=== PATIENT | female | born 1975 | race African-American/Black ===

== ENCOUNTER 2020-09-17 20:27 | Emergency (ER) | payer OTHER, SELFPAY ==
--- NOTE | ~2020-09-17 | XR_ITS ---
EXAMINATION: XR CHEST CLINICAL INFORMATION: Chest pain COMPARISON: None TECHNIQUE: Frontal view of the chest was obtained. FINDINGS: No significant abnormality is noted involving the heart, lungs, mediastinum, bony thorax or soft tissues. XR/XR chest 1V IMPRESSION: Unremarkable examination.
[2020-09-17 20:45] VITALS: BMI 29.9
[2020-09-17 21:15] LABS: COVID-19 Test Negative (Negative); IDNOW Serial# 9DD0AD1C
[2020-09-17 21:26] VITALS: BP 136/81; PULSE 70; RESP 20; TEMP 36.6; O2SAT 100; BMI 29.9
--- NOTE | 2020-09-17 21:46 | ECG_ITS ---
Test Reason : chest pain Blood Pressure : / mmHG Vent. Rate : 069 BPM Atrial Rate : 069 BPM P-R Int : 164 ms QRS Dur : 080 ms QT Int : 430 ms P-R-T Axes : 032 005 035 degrees QTc Int : 460 ms Normal sinus rhythm Possible Left atrial enlargement Left ventricular hypertrophy Abnormal ECG No previous ECGs available Referred By: Leon Lowery Electronically Signed By:DENISE KAY
--- NOTE | 2020-09-17 22:02 | ED_ITS ---
HPI - General Adult General Chief complaint: Upper Respiratory Symptoms Stated complaint: COVID EXPOSURE Time Seen by Provider: 09/17/20 21:28 Source: patient Mode of arrival: ambulatory Limitations: no limitations History of Present Illness HPI narrative: Patient presents to ED for exposure to COVID. Patient was e xposed to COVID 5 days ago. Patient states since then she has been anxious and having slight chest discomfort ( 5 days), but not chest pain. Patient has history of anxiety. Patient states no fever, or coughing. Patient denies any swelling of lower extremity, calf pain, coughing up blood, recent surgery, recent long travel, or any history of blood clots. Patient denies any control use Related Data Allergies Allergy/AdvReac Type Severity Reaction Status Date / Time No Known Allergies Allergy Verified 09/17/20 21:46 Review of Systems Review of Systems: Yes all other systems are reviewed and are negative Constitutional: Constitutional: Reports as per HPI and Reports no additional constitutional complaints Eyes: Eyes: Reports as per HPI and Reports no additional eye complaints ENT: Reports system reviewed and no additional complaints, except as documented and Reports as per HPI Cardiovascular: Cardiovascular: Reports as per HPI, Reports no additional cardiovascular complaints and Reports chest pain (No pain, chest discomfort, anxious) Respiratory: Respiratory: Reports as per HPI and Reports no additional respiratory complaints Gastrointestinal: Gastrointestinal: Reports as per HPI and Reports no ad ditional gastrointestinal complaints Musculoskeletal: Musculoskeletal: Reports no additional musculoskeletal complaints and Reports as per HPI Neurologic: Reports system reviewed and no additional complaints, except as documented and Reports as per HPI [facility] Past Medical History Medical History (Updated 09/17/20 @ 23:12 by ZBIGNIEW Carter) Panic attack Social History Social History Advance Directives: No Advance Directives Information Provided: No Patient : No Physical Exam Vital Signs: Vital Signs: Last Vital Signs Temp 97.6 F 09/17/20 22:58 Pulse 69 09/17/20 22:58 Resp 16 09/17/20 22:58 BP 142/92 H 09/17/20 22:58 Pulse Ox 98 09/17/20 22:58 Body Mass Index 29.9 Const: General: cooperative, healthy appearing, comfortable, no acute distress, well developed, alert, awake and Physically active Orientation/consciousness: patient oriented x3 HENMT: Head: Yes normal to inspection, Yes No palpable skull fracture present, Yes normocephalic, Yes atraumatic and No abrasion Eyes: General: appearance normal, both eyes and all related structures Neck: Neck: Yes normal visual inspection, Yes full ROM, Yes no lymphadenopathy, Yes no meningeal signs, Yes trachea midline, Yes supple and No tender Chest: Chest palpation & inspection: normal inspection of the chest and normal palpation of entire chest wall Resp: Effort & Inspection: normal respiratory effort and able to speak in complete sentences Auscultation: clear to auscultation bilaterally Cardio: Jugular venous distension: no JVD Heart sounds: S1 normal heart sound present and S2 normal heart sound present GI: Inspection: Yes normal to inspection Palpation (GI): Soft to palpation, not firm, nontender, no guarding and not rigid : General: No CVA tenderness and Yes no CVA tenderness Back/Spine/Pelvis: Back: no CVA tenderness, No CVA tenderness and No back tenderness Skin: General skin exam: no rashes or lesions noted and elasticity normal Neuro: General: patient oriented x3, gait normal, no meningeal signs and CN's II-XI intact bilaterally Cranial nerves: Yes CN's II-XII intact bilaterally Extrem: Other: Lower extremities negative for swelling, pitting edema, calf pain General: Yes normal to inspection and Yes full ROM Psych: Appearance: grossly normal, well kempt and not disheveled Course Course Course Narrative: Most likely patient have anxiety. COVID swab negative. Due to age will do a lease EKG and cardiac workup and chest x-ray. Patient states she is feeling better. Patient agreeable to medical evaluation. Patient was offered anxiety meds but she says she bought something yesterday and was taking when she got home. Patient states has no one in her family has heart attack at less than 50. . Reevaluation(s) Reevaluation #1: Patient presently asymptomatic. Patient's troponin negative. Patient's troponin negative. CBC is at baseline as per patient. Patient states she is anemic. Chest x-ray negative for pneumonia. D-dimer is 235. Upper limit normal is 278. D-dimer negative. PERC score 0. EKG negative STEMI. Patient do es not want any anxiety meds. Patient states she bought anxiety meds yesterday. I discussed patient's hemoglobin and hematocrit with her and she states those are her baseline and she has history of anemia. Time: 23:09 Medical Decision Making MDM Narrative Medical decision making narrative: COVID exposure Lab Data Result diagrams: 09/17/20 22:15 09/17/20 22:15 Labs: Lab Results 09/17/20 09/17/20 09/17/20 Range/Units 20:52 22:15 22:15 WBC 6.1 (4.8-10.8) X10*3/uL RBC 3.28 L (4.20-5.50) X10*6/uL Hgb 8.3 L (12.0-16.0) g/dl Hct 27.0 L (37-47) % MCV 82.3 (80-98) fL MCH 25.3 L (27.0-33.0) pg MCHC 30.7 L (31.0-35.0) g/dl RDW 17.3 H (11.0-16.0) % Plt Count 527 H (160-400) X10*3/uL MPV 8.3 L (9.4-12.3) fL Immature Gran % (Auto) 0.2 (0.0-0.4) % Neut % (Auto) 48.6 (45-73) % Lymph % (Auto) 40.1 H (20-40) % Saunders % (Auto) 7.0 (2-11) % Eos % (Auto) 3.1 (0-4) % Baso % (Auto) 1.0 (0-2) % Lymph # (Auto) 2.5 (1.2-4.9) X10*3/uL Saunders # (Auto) 0.4 (0.1-1.2) X10*3/uL Eos # (Auto) 0.2 (0.0-0.4) X10*3/uL Baso # (Auto) 0.1 (0.0-0.2) X10*3/uL Abs Immat Gran (auto) 0.01 (0.00-0.03) X10*3/uL Absolute Neuts (auto) 3.0 (2.0-8.3) X10*3/uL Absolute Nucleated RBC 0.000 (0.0-0.012) X10*3/uL Nucleated RBC % (auto) 0.0 (0.0-0.2) /100WBC PT 11.9 (10.8-13.0) SEC INR 1.0 (0.9-1.1) APTT 37.8 (24.1-38.0) SEC D-Dimer 235 NG/ML Sodium (135-145) mmol/L Potassium (3.3-5.1) mmol/L Chloride (96-108) mmol/L Carbon Dioxide (22-29) mmol/L Anion Gap (12-20) BUN (9-16) mg/dL Creatinine (0.5-1.4) mg/dL Estim Creat Clear Calc Estimated GFR Random Glucose (60-115) mg/dL Calcium (8.4-10.2) mg/dL Total Bilirubin (0.0-1.0) mg/dL AST (5-31) U/L ALT (0-31) U/L Alkaline Phosphatase (39-117) U/L Troponin I High Sens (<3.5-17.0) ng/L B-Natriuretic Peptide (<100) pg/mL Total Protein (6.5-8.0) g/dL Albumin (3.5-5.0) g/dL COVID-19 (MICHAEL) Negative (Negative) COVID-19 Clin Com See Note 09/17/20 09/17/20 09/17/20 Range/Units 22:15 22:15 22:15 WBC (4.8-10.8) X10*3/uL RBC (4.20-5.50) X10*6/uL Hgb (12.0-16.0) g/dl Hct (37-47) % MCV (80-98) fL MCH (27.0-33.0) pg MCHC (31.0-35.0) g/dl RDW (11.0-16.0) % Plt Count (160-400) X10*3/uL MPV (9.4-12.3) fL Immature Gran % (Auto) (0.0-0.4) % Neut % (Auto) (45-73) % Lymph % (Auto) (20-40) % Saunders % (Auto) (2-11) % Eos % (Auto) (0-4) % Baso % (Auto) (0-2) % Lymph # (Auto) (1.2-4.9) X10*3/uL Saunders # (Auto) (0.1-1.2) X10*3/uL Eos # (Auto) (0.0-0.4) X10*3/uL Baso # (Auto) (0.0-0.2) X10*3/uL Abs Immat Gran (auto) (0.00-0.03) X10*3/uL Absolute Neuts (auto) (2.0-8.3) X10*3/uL Absolute Nucleated RBC (0.0-0.012) X10*3/uL Nucleated RBC % (auto) (0.0-0.2) /100WBC PT (10.8-13.0) SEC INR (0.9-1.1) APTT (24.1-38.0) SEC D-Dimer NG/ML Sodium 141 (135-145) mmol/L Potassium 3.6 (3.3-5.1) mmol/L Chloride 107 (96-108) mmol/L Carbon Dioxide 25 (22-29) mmol/L Anion Gap 13 (12-20) BUN 9 (9-16) mg/dL Creatinine 0.80 (0.5-1.4) mg/dL Estim Creat Clear Calc 91.7 Estimated GFR > 60 Random Glucose 87 (60-115) mg/dL Calcium 8.7 (8.4-10.2) mg/dL Total Bilirubin 0.3 (0.0-1.0) mg/dL AST 17 (5-31) U/L ALT 7 (0-31) U/L Alkaline Phosphatase 69 (39-117) U/L Troponin I High Sens < 3.5 (<3.5-17.0) ng/L B-Natriuretic Peptide 27 (<100) pg/mL Total Protein 7.4 (6.5-8.0) g/dL Albumin 4.2 (3.5-5.0) g/dL COVID-19 (MICHAEL) (Negative) COVID-19 Clin Com ECG Data Interpretation: Normal sinus rhythm. Ventricular rate 69. Pr interval 164. QRS 80. Negative STEMI Discharge Plan Discharge Clinical Impression: Close exposure to 2019-nCoV Patient Disposition: Home, Self-Care Instructions: Chest Pain (ED), Anxiety (ED) Additional Instructions: EKG came back negative for heart attack. Troponin came back negative. Youre D- dimer was negative. Chest x-ray was normal. Negative COVID swab. Your BNP came back negative. Return to ED for worsening chest pain, shortness of breath, swelling of lower extremities, calf pain, coughing up blood, fever, chills, or any other concerning symptoms. Please follow-up with your PCP Interventions: ED Discharge Assessment Last Done: 09/17/20 23:19 Discharge Date/Time: 09/17/20 23:23 Print Language: Burkinan
[2020-09-17 22:24] LABS: MANUAL DIFF FLAG NO
[2020-09-17 22:25] LABS: Basophils Absolute Auto 0.1 X10*3/uL (0.0-0.2); Eosinophils Absolute Auto 0.2 X10*3/uL (0.0-0.4); Eosinophils Percent Auto 3.1 % (0-4); Hemoglobin 8.3 g/dl (12.0-16.0); Imm Gran Abs Auto 0.01 X10*3/uL (0.00-0.03); Imm Gran Pct Auto 0.2 % (0.0-0.4); Lymphocytes Absolute Auto 2.5 X10*3/uL (1.2-4.9); Lymphocytes Percent Auto 40.1 % (20-40); Mean Corpuscular HGB Conc 30.7 g/dl (31.0-35.0); Mean Corpuscular Hemoglobin 25.3 pg (27.0-33.0); Mean Corpuscular Volume 82.3 fL (80-98); Mean Platelet Volume 8.3 fL (9.4-12.3); Monocytes Absolute Auto 0.4 X10*3/uL (0.1-1.2); Neutrophils Percent Auto 48.6 % (45-73); Platelet Count 527 X10*3/uL (160-400); Red Blood Count 3.28 X10*6/uL (4.20-5.50); Red Cell Distribution Width 17.3 % (11.0-16.0); White Blood Count 6.1 X10*3/uL (4.8-10.8)
[2020-09-17 22:37] LABS: Prothrombin Time 11.9 SEC (10.8-13.0)
[2020-09-17 22:40] LABS: Partial Thromboplastin Time 37.8 SEC (24.1-38.0)
[2020-09-17 22:41] LABS: D Dimer 235 NG/ML
[2020-09-17 22:48] LABS: Alanine Aminotransferase 7 U/L (0-31); Albumin Level 4.2 g/dL (3.5-5.0); Alkaline Phosphatase 69 U/L (39-117); Anion Gap 13 (12-20); Aspartate Amino Transferase 17 U/L (5-31); Bilirubin Total 0.3 mg/dL (0.0-1.0); Blood Urea Nitrogen 9 mg/dL (9-16); Calcium 8.7 mg/dL (8.4-10.2); Carbon Dioxide 25 mmol/L (22-29); Chloride 107 mmol/L (96-108); Creatinine Clr Calc Pharmacy 91.7; Estimated Glomerular Filt Rate > 60; Glucose Random 87 mg/dL (60-115); Potassium 3.6 mmol/L (3.3-5.1); Sodium 141 mmol/L (135-145); Total Protein 7.4 g/dL (6.5-8.0)
[2020-09-17 22:54] LABS: B Type Natriuretic Peptide 27 pg/mL (<100); Troponin-I High Sensitivity < 3.5 ng/L (<3.5-17.0)
[2020-09-17 22:58] VITALS: BP 142/92; PULSE 69; RESP 16; TEMP 36.4; O2SAT 98
== END 2020-09-17 23:23 | disposition home or self-care (01) ==
PROVIDERS: Physician Assistant; Emergency Provider Internal Medicine
DX: R07.89 Other chest pain (principal); F41.9 Anxiety disorder, unspecified; Z20.822 Contact with and (suspected) exposure to COVID-19
CPT/HCPCS: 36415; 71045; 80053; 83880; 84484; 85025; 85379; 85610; 85730; 87635; 93005; 99283; 99284

== ENCOUNTER 2020-10-06 15:31 | Emergency (ER) | payer OTHER, SELFPAY ==
[2020-10-06 15:38] VITALS: BP 131/82; PULSE 69; RESP 14; TEMP 37; O2SAT 100; BMI 29.9
--- NOTE | 2020-10-06 16:36 | ED.GENADULT ---
HPI - General Adult General Chief complaint: Skin/Abscess/Foreign Body Stated complaint: FB IN EAR Time Seen by Provider: 10/06/20 16:35 History of Present Illness HPI narrative: patient complains of broken off piece of cotton Q-tip in right ear, no ear pain Review of systems positive for foreign body in right ear Negatives are no fever no chills no headache no dizziness no sore throat no neck pain no rash Related Data Allergies Allergy/AdvReac Type Severity Reaction Status Date / Time No Known Allergies Allergy Verified 09/17/20 21:46 [facility] Past Medical History Source: nursing notes reviewed Medical History (Updated 10/07/20 @ 00:01 by Liu Little) Panic attack Social History Social History Advance Directives: No Advance Directives Information Provided: Yes Patient : No Physical Exam Vital Signs: Vital Signs: Last Vital Signs Temp 98.6 F 10/06/20 15:38 Pulse 69 10/06/20 15:38 Resp 14 10/06/20 15:38 BP 131/82 10/06/20 15:38 Pulse Ox 100 10/06/20 15:38 Body Mass Index 29.9 Head is normocephalic atraumatic The left ear has normal tympanic membrane with normal canal, tympanic membrane is easily visualized and is not read The right ear is blocked by a piece of cotton Q-tip and the tympanic membrane is not visualized The pharynx is clear Neck is supple Respiratory no distress Heart no murmur Skin no rashes Course Course Course Narrative: The piece of Q-tip in the right ears easily removed with a forceps [place] exam of the right ear shows a normal canal, tympanic membrane is easily visualized with out any perforation no signs of infection and patient is discharged Discharge Plan Discharge Clinical Impression: Foreign body in ear Patient Disposition: Home, Self-Care Additional Instructions: piece of cotton Q-tip was removed with forceps, no residual foreign body Try to avoid putting Q-tips deeply anterior here, if you need to remove wax you can buy a wax softener and use syringe with warm water to irrigate out any wax Return any concerns Interventions: ED Discharge Assessment Last Done: 10/06/20 16:39 Discharge Date/Time: 10/06/20 16:40
== END 2020-10-06 16:40 | disposition home or self-care (01) ==
PROVIDERS: Emergency Provider Internal Medicine
DX: T16.1XXA Foreign body in right ear, initial encounter (principal); X58.XXXA Exposure to other specified factors, initial encounter; Y93.9 Activity, unspecified; Y92.9 Unspecified place or not applicable; Y99.9 Unspecified external cause status
CPT/HCPCS: 69200; 99283; 99284

== ENCOUNTER 2021-03-22 13:54 | Emergency (ER) | payer OTHER, SELFPAY ==
--- NOTE | ~2021-03-22 | XR_ITS ---
EXAMINATION: XR CHEST CLINICAL INFORMATION: Cough COMPARISON: September 17, 2020 TECHNIQUE: AP portable view of the chest was obtained. FINDINGS: No significant abnormality is noted involving the heart, lungs, mediastinum, bony thorax or soft tissues. Density overlying both lower lungs appear to be related to breast shadows. XR/XR chest 1V IMPRESSION: No acute disease.
[2021-03-22 14:16] VITALS: BP 120/74; PULSE 63; RESP 18; TEMP 36.9; O2SAT 99; BMI 28.3
--- NOTE | 2021-03-22 14:39 | ED_ITS ---
HPI - SOB/Dyspnea General Chief Complaint: Dyspnea Stated Complaint: SOB Time Seen by Provider: 03/22/21 14:38 Source: patient Mode of arrival: ambulatory Limitations: no limitations History of Present Illness MD elicited complaint: shortness of breath and cough Onset (ago): day(s) (5) Context: other (not vaccinated) Timing: constant Severity: moderate Exacerbating factors: coughing Relieving factors: nothing Associated symptoms: fever, cough and sputum production Treatment prior to arrival: none Related Data Previous Rx's Medication Instructions Recorded azithromycin 250 mg tablet See Rx Instructions .ROUTE 03/22/21 .COMPLEX #6 tab benzonatate 100 mg capsule 100 mg PO TID PRN #30 cap 03/22/21 prednisone 20 mg tablet 40 mg PO DAILY 5 Days #10 tab 03/22/21 Allergies Allergy/AdvReac Type Severity Reaction Status Date / Time No Known Allergies Allergy Verified 03/22/21 14:16 Review of Systems Review of Systems: Constitutional : pos Fever, No Chills ENT/Mouth : No sore throat, No Rhinorrhea, No Swallowing Difficulty Eyes: No Eye Pain, No Swelling, No Redness Cardiovascular : No Chest Pain, positive SOB, No Orthopnea, no Edema Respiratory : pos Cough, pos Sputum, No Wheezing, positive dyspnea Gastrointestinal : No Nausea, No Vomiting, No Diarrhea, No abdominal Pain, No Hematochezia, No Melena Genitourinary : No Dysuria, No Urinary Frequency, No Hematuria Musculoskeletal : No joint pain, No Myalgias Skin : No Skin Lesions, No rash Neuro : No Weakness, No Numbness, No Dizziness, No Headache Psych : No Anxiety/Panic, No Depression Heme/Lymph: No Bruising, No Lymphadenopathy Endocrine : No Polyuria, No Polydipsia All other systems reviewed and are negative [facility] Past Medical History Medical History Panic attack Social History Social History (Updated 03/22/21 @ 15:15 by Amanda Diamond DO) Patient Tobacco Use Status: Never used Tobacco Use of substances other than those prescribed or required for medical reasons: No Advance Directives: No Advance Directives Information Provided: Yes Patient : No Physical Exam Vital Signs: Vital Signs: Last Vital Signs Temp 98.4 F 03/22/21 14:16 Pulse 63 03/22/21 15:33 Resp 16 03/22/21 15:33 BP 120/74 03/22/21 14:16 Pulse Ox 99 03/22/21 14:16 BMI result Body Mass Index 28.3 Appearance: Alert. Oriented X3. No acute distress. Eyes: Pupils equal, round and reactive to light. ENT: Pharynx normal. Neck: Normal inspection. Neck supple. CVS: Normal heart rate and rhythm. Pulses normal. Respiratory: No respiratory distress. Breath sounds slightly diminished faint rhonchi noted. Abdomen: Soft and nontender. Skin: Skin warm and dry. Normal skin color. Normal skin turgor. Extremities: No lower extremity edema. No calf ttp Neuro: Oriented X 3. No motor deficit. No sensory deficit. MDM - SOB/Dyspnea MDM Narrative Medical decision making narrative: 46 yo female with no sig PMH unvaccinated for COVID here with c/o 5 days productive cough in nature had fever 2 days ago denies sick contacts tolerating PO - at this time CXR for pneumonia ordered, INH, tessalon. Not toxic, normal O2 sats, no chest pain. Dispo per results and findings. Lab Data Labs: Lab Results 03/22/21 Range/Units 14:28 COVID-19 (MICHAEL) Negative (Negative) COVID-19 Clin Com See Note Discharge Plan Discharge Clinical Impression: Bronchitis Patient Disposition: Home, Self-Care Instructions: Acute Bronchitis (ED) Additional Instructions: return to ED for any worsening symptoms or concerns your chest xray shows no pneumonia your COVID test was negative CAN USE INHALER 2 PUFFS EVERY 3 TO 4 HOURS FOR SHORTNESS OF BREATH OR COUGH Prescriptions: New azithromycin 250 mg tablet See Rx Instructions .ROUTE .COMPLEX Qty: 6 RF: 0 benzonatate 100 mg capsule 100 mg PO TID PRN (Reason: cough) Qty: 30 RF: 0 prednisone 20 mg tablet 40 mg PO DAILY 5 Days Qty: 10 RF: 0 Referrals: Physician,Unknown J [Primary Care Provider] - 3 days (if not better) Stand Alone Forms: Work/School Release
[2021-03-22 14:52] LABS: COVID-19 Test Negative (Negative); IDNOW Serial# 9DD0AD1C
[2021-03-22] MEDS: Albuterol Sulfate 90 MCG 8 GM INHALER 2 PUFF INHALE (15:28)
[2021-03-22 15:33] VITALS: PULSE 63; RESP 16; O2SAT 99
[2021-03-22] MEDS: Benzonatate 100 MG CAPSULE PO (15:48)
== END 2021-03-22 15:54 | disposition home or self-care (01) ==
PROVIDERS: Emergency Provider Emergency Medicine
DX: J40 Bronchitis, not specified as acute or chronic (principal); R06.02 Shortness of breath; Z79.899 Other long term (current) drug therapy; Z20.822 Contact with and (suspected) exposure to COVID-19
CPT/HCPCS: 36415; 71045; 87635; 94640; 99282; 99284

== ENCOUNTER 2021-10-15 12:39 | Emergency (ER) | payer OTHER, SELFPAY ==
[2021-10-15 13:01] VITALS: BP 140/86; PULSE 72; RESP 18; TEMP 36.6; O2SAT 100; BMI 28.4
[2021-10-15 14:18] LABS: MANUAL DIFF FLAG NO
[2021-10-15 14:21] LABS: Basophils Absolute Auto 0.1 X10*3/uL (0.0-0.2); Basophils Percent Auto 1.1 % (0-2); Eosinophils Absolute Auto 0.3 X10*3/uL (0.0-0.4); Eosinophils Percent Auto 5.2 % (0-4); Hematocrit 26.4 % (37.0-47.0); Hemoglobin 7.6 g/dl (12.0-16.0); Imm Gran Abs Auto 0.02 X10*3/uL (0.00-0.03); Imm Gran Pct Auto 0.4 % (0.0-0.4); Lymphocytes Absolute Auto 1.8 X10*3/uL (1.2-4.9); Lymphocytes Percent Auto 32.5 % (20-40); Mean Corpuscular HGB Conc 28.8 g/dl (31.0-35.0); Mean Corpuscular Hemoglobin 22.2 pg (27.0-33.0); Mean Corpuscular Volume 77.2 fL (80.0-98.0); Mean Platelet Volume 8.2 fL (9.4-12.3); Monocytes Absolute Auto 0.4 X10*3/uL (0.1-1.2); Monocytes Percent Auto 6.5 % (2-11); Neutrophils Absolute Auto 2.9 x10*3/uL (2.0-8.3); Neutrophils Percent Auto 54.3 % (45-73); Platelet Count 597 X10*3/uL (160-400); Red Blood Count 3.42 X10*6/uL (4.20-5.50); Red Cell Distribution Width 19.4 % (11.0-16.0); White Blood Count 5.4 X10*3/uL (4.8-10.8)
[2021-10-15 15:03] LABS: Alanine Aminotransferase 7 U/L (0-31); Alkaline Phosphatase 64 U/L (39-117); Anion Gap 8 (12-20); Aspartate Amino Transferase 16 U/L (5-31); Bilirubin Direct < 0.2 mg/dL (0.0-0.5); Bilirubin Total 0.2 mg/dL (0.0-1.0); Blood Urea Nitrogen 6 mg/dL (9-16); Calcium 8.9 mg/dL (8.4-10.2); Carbon Dioxide 26 mmol/L (22-29); Chloride 109 mmol/L (96-108); Creatinine Clr Calc Pharmacy 94.4; Estimated Glomerular Filt Rate > 60; Glucose Random 91 mg/dL (60-115); Potassium 4.1 mmol/L (3.3-5.1); Sodium 139 mmol/L (135-145); Total Protein 7.2 g/dL (6.5-8.0)
[2021-10-15 19:52] VITALS: BP 175/91; PULSE 58; RESP 18; O2SAT 98
--- NOTE | 2021-10-15 19:54 | PC.NURSE ---
STEADY ON FEET. skin pwd, lower conjunctiva slightly pale. denies hx of anemia. states dizziness is improved compaired to a few hrs ago.
--- NOTE | 2021-10-15 21:01 | ED.GENADULT ---
HPI - General Adult General Chief complaint: General Medical Stated complaint: Low Blood Count C Called Pt Time Seen by Provider: 10/15/21 17:47 Source: patient Mode of arrival: ambulatory Limitations: no limitations History of Present Illness HPI narrative: Patient's history of chronic iron deficiency anemia for last 20 years noncompliant to her ferrous sulfate tablets because of constipation sent from urgent care center for hemoglobin of 7.6 patient does have vertigo denies any lightheadedness no syncope no shortness of breath no chest pain or palpitation ,no history of blood transfusion no melena no vaginal bleeding no history of peptic ulcer bleed Related Data Previous Rx's Medication Instructions Recorded azithromycin 250 mg tablet See Rx Instructions PO .COMPLEX #6 03/22/21 tabs benzonatate 100 mg capsule 100 mg PO TID PRN cough #30 caps 03/22/21 prednisone 20 mg tablet 40 mg PO DAILY 5 days #10 tabs 03/22/21 ferrous sulfate 300 mg (60 mg 300 mg (5 mL) PO DAILY #500 mL 10/15/21 iron)/5 mL oral liquid Allergies Allergy/AdvReac Type Severity Reaction Status Date / Time No Known Allergies Allergy Verified 03/22/21 14:16 Review of Systems Review of Systems: Yes all other systems are reviewed and are negative [facility] Past Medical History Medical History Panic attack Social History Social History Patient Tobacco Use Status: Never used Tobacco Advance Directives: No Advance Directives Information Provided: No Physical Exam ED Vital Signs: Vital Signs - 24 hr 10/15/21 13:01 10/15/21 19:52 10/15/21 21:13 Temperature 98 F Pulse Rate 72 58 Respiratory Rate 18 18 Blood Pressure 140/86 H 175/91 H 149/82 H Pulse Oximetry 100 98 Oxygen Delivery Method Room Air Room Air 10/15/21 21:14 10/15/21 21:14 Temperature Pulse Rate 63 Respiratory Rate Blood Pressure 149/82 H 154/85 H Pulse Oximetry Oxygen Delivery Method BMI result Body Mass Index 28.4 Appearance: Alert. Oriented X3. No acute distress. Eyes: Pallor+ ENT: Pharynx normal. Oral Mucosa moist tympanic membrane intact Neck: Normal inspection. Neck supple. CVS: Normal heart rate and rhythm. Pulses normal. Respiratory: No respiratory distress. Equal air entry bilateral, no wheezing/rales/rhonchi Abdomen: Soft and nontender. Bowel sounds are present, no mass palpable, no CVA tenderness Skin: Skin warm and dry. Normal skin color. Normal skin turgor. Extremities: No lower extremity edema. No calf tenderness Neuro: Oriented X 3. No motor deficit. No sensory deficit.No cerebellar signs , cranial nerves II-XII intact Medical Decision Making MDM Narrative Medical decision making narrative: Patient with chronic iron-deficiency anemia with hemoglobin 7.6 hematocrit 26.4 in 09/24 patient hemoglobin was 8.3 hematocrit 27 patient is symptomatic from chronic anemia noncompliant to iron tablets orthostatics are normal will discharge patient home on iron liquid Lab Data Lab results reviewed: Yes I reviewed the patient's lab results. Result diagrams: 10/15/21 14:14 10/15/21 14:14 Labs: Lab Results 10/15/21 10/15/21 10/15/21 Range/Units 14:14 14:14 20:53 WBC 5.4 (4.8-10.8) X10*3/uL RBC 3.42 L (4.20-5.50) X10*6/uL Hgb 7.6 L (12.0-16.0) g/dl Hct 26.4 L (37.0-47.0) % MCV 77.2 L (80.0-98.0) fL MCH 22.2 L (27.0-33.0) pg MCHC 28.8 L (31.0-35.0) g/dl RDW 19.4 H (11.0-16.0) % Plt Count 597 H (160-400) X10*3/uL MPV 8.2 L (9.4-12.3) fL Immature Gran % (Auto) 0.4 (0.0-0.4) % Neut % (Auto) 54.3 (45-73) % Lymph % (Auto) 32.5 (20-40) % [place] % (Auto) 6.5 (2-11) % Eos % (Auto) 5.2 H (0-4) % Baso % (Auto) 1.1 (0-2) % Lymph # (Auto) 1.8 (1.2-4.9) X10*3/uL [place] # (Auto) 0.4 (0.1-1.2) X10*3/uL Eos # (Auto) 0.3 (0.0-0.4) X10*3/uL Baso # (Auto) 0.1 (0.0-0.2) X10*3/uL Abs Immat Gran (auto) 0.02 (0.00-0.03) X10*3/uL Absolute Neuts (auto) 2.9 (2.0-8.3) x10*3/uL Absolute Nucleated RBC 0.000 (0.0-0.012) X10*3/uL Nucleated RBC % (auto) 0.0 (0.0-0.2) /100WBC Sodium 139 (135-145) mmol/L Potassium 4.1 (3.3-5.1) mmol/L Chloride 109 H (96-108) mmol/L Carbon Dioxide 26 (22-29) mmol/L Anion Gap 8 L (12-20) BUN 6 L (9-16) mg/dL Creatinine 0.75 (0.5-1.4) mg/dL Estim Creat Clear Calc 94.4 Estimated GFR > 60 Random Glucose 91 (60-115) mg/dL Calcium 8.9 (8.4-10.2) mg/dL Total Bilirubin 0.2 (0.0-1.0) mg/dL Direct Bilirubin < 0.2 (0.0-0.5) mg/dL AST 16 (5-31) U/L ALT 7 (0-31) U/L Alkaline Phosphatase 64 (39-117) U/L Total Protein 7.2 (6.5-8.0) g/dL Albumin 4.0 (3.5-5.0) g/dL Blood Type B Positive Discharge Plan Discharge Clinical Impression: Iron deficiency anemia, Benign paroxysmal positional vertigo Patient Disposition: Home, Self-Care Instructions: Iron Deficiency Anemia (ED), Benign Paroxysmal Positional Vertigo (ED) Additional Instructions: Take iron tablets/liquid daily as prescribed. Continue meclizine for dizziness. Follow-up with ENT Prescriptions: New ferrous sulfate 300 mg (60 mg iron)/5 mL liquid 300 mg PO DAILY Qty: 500 0RF No Action azithromycin 250 mg tablet See Rx Instructions .ROUTE .COMPLEX Qty: 6 0RF Rx Instructions: For 250 mg dose pack: take 500 mg today (day 1), then 250 mg for 4 days (days 2-5) benzonatate 100 mg capsule 100 mg PO TID PRN (Reason: cough) Qty: 30 0RF prednisone 20 mg tablet 40 mg PO DAILY 5 Days Qty: 10 0RF Referrals: Abdoul Pettit [Physician] - 1 week
[2021-10-15 21:13] VITALS: BP 149/82
[2021-10-15 21:14] VITALS: BP 149/82; BP 154/85; PULSE 63
[2021-10-15 21:38] LABS: Iron 271 mcg/dL (30-160); Percent Iron Saturation 76 % (15-50); Total Iron Binding Capacity 358 mcg/dL (228-428); Unsaturated Iron Binding 87 ug/dL
== END 2021-10-15 21:42 | disposition home or self-care (01) ==
PROVIDERS: Emergency Provider Internal Medicine
DX: D50.9 Iron deficiency anemia, unspecified (principal); H81.13 Benign paroxysmal vertigo, bilateral; Z79.899 Other long term (current) drug therapy
CPT/HCPCS: 36415; 80048; 80076; 83540; 85025; 86850; 86900; 86901; 99283; 99284

== ENCOUNTER 2022-04-15 09:29 | Emergency (ER) | payer OTHER, SELFPAY ==
[2022-04-15 09:31] VITALS: BP 163/88; PULSE 73; RESP 19; TEMP 36.6; O2SAT 100; BMI 27.6
--- NOTE | 2022-04-15 09:45 | ED.GENADULT ---
HPI - General Adult General Chief complaint: General Medical Stated complaint: Bumps on forehead Time Seen by Provider: 04/15/22 09:37 Source: patient Mode of arrival: ambulatory Limitations: no limitations History of Present Illness HPI narrative: Patient is a 47-year-old female who presents to the emergency department with complaint of pruritic rash to forehead, arms, and abdomen Patient reports symptom onset to be 3 days ago after spending 4 nights in a hotel. On the last night she noticed that there were bugs present in the room, she is not certain what type of bug this was. Denies any systemic symptoms. Denies any new medications, creams, lotions, soaps, detergents. Related Data Previous Rx's Medication Instructions Recorded azithromycin 250 mg tablet See Rx Instructions PO .COMPLEX #6 03/22/21 tabs benzonatate 100 mg capsule 100 mg PO TID PRN cough #30 caps 03/22/21 prednisone 20 mg tablet 40 mg PO DAILY 5 days #10 tabs 03/22/21 ferrous sulfate 300 mg (60 mg 300 mg (5 mL) PO DAILY #500 mL 10/15/21 iron)/5 mL oral liquid loratadine 10 mg tablet (Claritin) 10 mg PO DAILY #14 tabs 04/15/22 triamcinolone acetonide 0.1 % 1 appl topical BID #30 grams 04/15/22 topical cream Allergies Allergy/AdvReac Type Severity Reaction Status Date / Time No Known Allergies Allergy Verified 03/22/21 14:16 Review of Systems Review of Systems: Skin: Rashes noted in HPI Yes all other systems are reviewed and are negative PMFSH Past Medical History Attestation statement: The following information was validated with the patient. Medical History Panic attack Social History Social History Patient Tobacco Use Status: Never used Tobacco Advance Directives: No Advance Directives Information Provided: No Physical Exam ED Vital Signs: Vital Signs - 24 hr 04/15/22 09:31 Temperature 98 F Pulse Rate 73 Respiratory Rate 19 Blood Pressure 163/88 H Pulse Oximetry 100 Oxygen Delivery Method Room Air BMI result Body Mass Index 27.6 Appearance: Alert.?Oriented to person, place and time. No acute distress.?Normal affect.? Neck: Normal inspection.? Neck supple.?? CVS: Heart sounds normal. Normal heart rate and rhythm.? Pulses normal.?? Respiratory: No respiratory distress.? Lung sounds clear to auscultation bilaterally?? Abdomen: Soft and non-tender. ? Skin: Skin warm and dry.? Normal skin color.? Maculopapular rash to forehead, bilateral arms, and abdomen in a linear distribution without surrounding erythema, purulence, or vesicles.? Extremities: No lower extremity edema.? Neuro: Moves all extremities spontaneously. Sensation intact bilaterally. No focal neuro deficits. Ambulates with normal steady gait. Medical Decision Making Medical Decision Making MDM Narrative: Patient is a 47-year-old female with no reported past medical history presenting to the emergency department for evaluation of a rash. History and physical examination appear most consistent with bedbug bites, does not appear consistent with scabies, no notable burrows, no crusting, no vesicles, not present to intertriginous areas. Discussed potential for contact dermatitis as well [place] at this time no identifiable contact allergens, bedbug bites sees more likely onset after residing in hotel were bugs were noted to be present. She is overall well-appearing, nontoxic, no signs of systemic symptoms. Discussed plan of care for discharge home, prescription for topical steroid and oral antihistamine sent to patient's pharmacy. Patient to follow-up with primary care provider for persistent symptoms. Differential Diagnosis Differential Diagnoses: The differential diagnosis associated with the presentation includes (As noted above) Prescription Management I considered prescription management with: Other (Topical steroid, oral antihistamine.) Discharge Plan Discharge Clinical Impression: Bed bug bite Patient Disposition: Home, Self-Care Additional Instructions: Apply topical steroid cream to areas were rash is present, in addition you may take for Claritin to help with symptoms. As discussed, all of your personal belongings that wore in the hotel room with you have a potential to be infested with bedbugs, that could have been brought into your own home. All these items should be washed thoroughly in hot water, you should inspect areas in your home such as mattress seams, furniture creases etc for evidence of bugs. Please follow-up with your primary care provider for persistent symptoms. Prescriptions: New loratadine [Claritin] 10 mg tablet 10 mg PO DAILY Qty: 14 0RF triamcinolone acetonide 0.1 % cream 1 appl topical BID Qty: 30 0RF No Action ferrous sulfate 300 mg (60 mg iron)/5 mL liquid 300 mg PO DAILY Qty: 500 0RF azithromycin 250 mg tablet See Rx Instructions .ROUTE .COMPLEX Qty: 6 0RF Rx Instructions: For 250 mg dose pack: take 500 mg today (day 1), then 250 mg for 4 days (days 2-5) benzonatate 100 mg capsule 100 mg PO TID PRN (Reason: cough) Qty: 30 0RF prednisone 20 mg tablet 40 mg PO DAILY 5 Days Qty: 10 0RF Referrals: Physician,Unknown J [Primary Care Provider] -
== END 2022-04-15 10:23 | disposition home or self-care (01) ==
PROVIDERS: Emergency Provider Student in an Organized Health Care Education/Training Program
DX: S00.86XA Insect bite (nonvenomous) of other part of head, initial encounter (principal); S40.862A Insect bite (nonvenomous) of left upper arm, initial encounter; S40.861A Insect bite (nonvenomous) of right upper arm, initial encounter; S30.861A Insect bite (nonvenomous) of abdominal wall, initial encounter; W57.XXXA Bitten or stung by nonvenomous insect and other nonvenomous arthropods, initial encounter; Y93.84 Activity, sleeping; Y92.59 Other trade areas as the place of occurrence of the external cause; Y99.9 Unspecified external cause status
CPT/HCPCS: 99282; 99283

== ENCOUNTER 2022-10-22 02:56 | Emergency (ER) | payer OTHER, SELFPAY ==
[2022-10-22 03:03] VITALS: BP 152/75; PULSE 72; RESP 18; TEMP 36.8; O2SAT 100; BMI 26.8
--- NOTE | 2022-10-22 04:01 | ED_ITS ---
HPI - Skin/Abscess/Foreign Bdy General Chief complaint: Skin/Abscess/Foreign Body Stated complaint: Abdominal Pain Time Seen by Provider: 10/22/22 03:55 Source: patient Mode of arrival: ambulatory Limitations: no limitations History of Present Illness HPI narrative: 47-year-old female presented to the emergency department for evaluation of yeast skin infection. Started in in a right groin area now spreading to under the left breast, patient is prone to skin yeast infection. Patient declined pain diabetic. Related Data Previous Rx's Medication Instructions Recorded azithromycin 250 mg tablet See Rx Instructions PO .COMPLEX #6 03/22/21 tabs benzonatate 100 mg capsule 100 mg PO TID PRN cough #30 caps 03/22/21 prednisone 20 mg tablet 40 mg PO DAILY 5 days #10 tabs 03/22/21 ferrous sulfate 300 mg (60 mg 300 mg (5 mL) PO DAILY #500 mL 10/15/21 iron)/5 mL oral liquid loratadine 10 mg tablet (Claritin) 10 mg PO DAILY #14 tabs 04/15/22 triamcinolone acetonide 0.1 % 1 appl topical BID #30 grams 04/15/22 topical cream nystatin-triamcinolone 100,000 1 appl topical TID #60 grams 10/22/22 unit/g-0.1 % topical cream Allergies Allergy/AdvReac Type Severity Reaction Status Date / Time meclizine Allergy Angioedema Verified 10/22/22 04:06 Review of Systems Review of Systems: All other systems are reviewed and are negative Constitutional: Reports as per HPI and Reports no additional constitutional complaints Eyes: Reports as per HPI and Reports no additional eye complaints Reports system reviewed and no additional complaints, except as documented Cardiovascular: Reports as per HPI and Reports no additional cardiovascular complaints Respiratory: Reports as per HPI and Reports no additional respiratory complaints Gastrointestinal: Reports as per HPI and Reports no additional gastrointestinal complaints Genitourinary: Reports no additional female genitourinary complaints Musculoskeletal: Reports no additional musculoskeletal complaints Skin/Breast: Reports system reviewed and no additional complaints, except as docu Psychiatric: Reports no additional psychiatric complaints Endocrine: Reports no additional endocrine complaints Hematologic/Lymphatic: Reports no additional hematologic/lymphatic complaints Allergic/Immunologic: Reports no additional allergic/immunologic complaints Reports system reviewed and no additional complaints, except as documented and Reports Abnormal speech present [facility] Past Medical History Medical History Panic attack Social History Social History Patient Tobacco Use Status: Never used Tobacco Advance Directives: No Advance Directives Information Provided: Yes Physical Exam Vital Signs: Vital Signs: Last Vital Signs Temp 98.3 F 10/22/22 03:03 Pulse 72 10/22/22 03:03 Resp 18 10/22/22 03:03 BP 152/75 H 10/22/22 03:03 Pulse Ox 100 10/22/22 03:03 O2 Del Method Room Air 10/22/22 03:03 BMI result Body Mass Index 26.8 Vital signs have been reviewed as appeared to be correct. Blood pressure normal. Heart rate normal. Respiration rate normal. Temperature normal. Oxygen saturation normal. Appearance: Alert. Oriented X3. No acute distress. Head: Normal external exam. Normocephalic. Atraumatic. No Larkin signs noted. No raccoon eyes noted Eyes: PERRLA. EOMI. Conjunctiva and sclera normal. Eyelids normal. ENT: TM's Normal. Pharynx normal. Uvula midline. Moist mucous membranes. No trismus noted. No drooling noted. No muffled voice noted. Neck: Normal inspection. Neck supple. FROM. No adenopathy. Thyroid Normal. No meningeal signs. No neck mass noted. CVS: Normal heart rate and rhythm. Heart sound normal. No murmurs noted. Pulses normal throughout. Respiratory: No respiratory distress. Painless inspiration. Breath sounds normal. No wheezes/rales/rhonchi noted. Chest nontender. No accessory muscle usage noted or decreased air movement noted. Abdomen: Soft and nontender. Bowel sounds normal in all 4 quadrants. No distention noted. No organomegaly noted. No visible injury noted. Back: No CVA tenderness. Full range of motion noted. Skin: Under left breast and in the right groin area there is area of beefy red, moist service was typical satellite lesions. Extremities: No lower extremity edema. Extremities exhibit normal range of motion. Extremities nontender. Neuro: Oriented X 3. Cranial nerve exam: II-XII are grossly intact No motor deficit. No sensory deficit. Reflexes normal. Course Course Course Narrative: Acute skin yeast infection will start the patient on anti fungal cream. Medical Decision Making Differential Diagnosis Differential Diagnoses: The differential diagnosis associated with the presentation includes (Yeast infection, cellulitis, abscess, hives, immunocompromised.) Admission/Observation Consideration of admission/observation: Escalation of care including admission/observation considered Discharge Plan Discharge Clinical Impression: [place] infection of flexural skin Patient Disposition: Home, Self-Care Instructions: Skin Yeast Infection (ED) Prescriptions: New nystatin-triamcinolone 100,000-0.1 unit/g-% cream 1 appl topical TID Qty: 60 0RF No Action ferrous sulfate 300 mg (60 mg iron)/5 mL liquid 300 mg PO DAILY Qty: 500 0RF azithromycin 250 mg tablet See Rx Instructions .ROUTE .COMPLEX Qty: 6 0RF Rx Instructions: For 250 mg dose pack: take 500 mg today (day 1), then 250 mg for 4 days (days 2-5) benzonatate 100 mg capsule 100 mg PO TID PRN (Reason: cough) Qty: 30 0RF prednisone 20 mg tablet 40 mg PO DAILY 5 Days Qty: 10 0RF loratadine [Claritin] 10 mg tablet 10 mg PO DAILY Qty: 14 0RF triamcinolone acetonide 0.1 % cream 1 appl topical BID Qty: 30 0RF
[2022-10-22 04:03] VITALS: BP 127/82; PULSE 65; RESP 14; TEMP 36.9; O2SAT 98
--- NOTE | 2022-10-22 04:18 | PC.NURSE ---
pt ambulatory at discharge. pt calm and cooperative. pt provided with discharge packet. pt verbalized understanding of discharge plan. vss
== END 2022-10-22 04:19 | disposition home or self-care (01) ==
PROVIDERS: Emergency Provider Emergency Medicine
DX: B37.2 Candidiasis of skin and nail (principal)
CPT/HCPCS: 99283; 99284